=== PATIENT | female | born 1965 | race Caucasian/White ===

== ENCOUNTER → 2020-02-05 | Outpatient (CLI) | payer OTHER | LOC: MRI 14:50 | DX: M92.8 Other specified juvenile osteochondrosis (principal) ==

== ENCOUNTER → 2020-12-05 | Outpatient (CLI) | payer OTHER | LOC: MRI 07:18 | DX: M25.462 Effusion, left knee (principal); M71.22 Synovial cyst of popliteal space [Baker], left knee; M22.42 Chondromalacia patellae, left knee ==